=== PATIENT | female | born 1935 | race Caucasian/White ===

== ENCOUNTER 2018-08-15 16:53 | Observation (INO) | payer BC, MEDICARE ==
[~2018-08-15] VITALS: Ht 160 cm; Wt 72.0 kg
[~2018-08-15 16:53] MED LIST: ALPR0.25; ATOR10TA65 PO; CETI10CA; ESCI20TA; HYDR-1666; IRBE1TAB29 PO; PANT40TA3 PO
--- NOTE | 2018-08-15 17:24 | STROKE ---
Date/Time of Note Date/Time of Note DATE: 08/15/18 TIME: 17:23 Patient Information General Arrival Date Age 83 Gender female Weight 72 kg Vital Signs Vital Signs Vital Signs Date Temp Pulse Resp B/P (MAP) Pulse Ox O2 O2 Flow FiO2 Time Delivery Rate 08/15/18 97.8 105 18 135/76 94 Room Air 17:21 (95) Patient History Current Medications Allergies: Coded Allergies: No Known Allergy (Unverified , 05/05/13) History & Physical History of Present Illness 83 F PMH HTN LKW 1615 PST with transient aphasia NIH Stroke Scale NIH Stroke Scale [id number] Total Score: [id number] Date/Time Recorded DATE: 08/15/18 TIME: 17:23 Submitted By Mauri Steve t-PA Imaging Review Date/Time Imaging Reviewed DATE: 08/15/18 TIME: 17:23 t-PA Administration Recommendation: No Weight 72 kg Recommedation submitted by Mauri Steve Reason t-PA not Recommended NIHSS 0 Recommendations Recommendation 83 F with TIA consisting of transient aphasia. Back to baseline now. - Admission for initial TIA studies: MRI Brain, MRA Head/Neck, TTE with bubble, blood cultures, telemetry, EKG, LDL, A1c, SP, PT, OT. Further testing per these initial results/evaluations. - Perform bedside swallow testing in ED and load with ASA 325 mg PO and Plavix 600 mg PO if passes and not already on these agents at home. Would continue ASA at 81 mg PO QD and Plavix at 75 mg PO QD starting tomorrow. Duration of dual-an tiplatelet therapy per local Neurology team - Frequent neuro checks per protocol - Strict normonatremia, normothermia, normoglycemia - Permissive SBP to 180 for first 24 hours during stroke work-up - Please consult local Neurologist to guide further recs MAURI STEVE MD August 15, 2018 17:24
[2018-08-15] MEDS ORDERED: ASPIRIN 325 MG TAB PO ONE (17:30)
[2018-08-15] MEDS ORDERED: CLOPIDOGREL 75 MG TAB PO ONE (17:30)
[2018-08-15] MEDS ORDERED: ALPR0.5T PO (17:36)
[2018-08-15] MEDS ORDERED: ESCI5TAB10 PO (17:38)
[2018-08-15] MEDS ORDERED: PANT40TA4 PO (17:43)
[2018-08-15] MEDS ORDERED: ATOR40TA68 PO (17:43)
[2018-08-15] MEDS ORDERED: HYDR-3980 PO (17:43)
[2018-08-15] MEDS ORDERED: IRBE1TAB33 PO (17:44)
[2018-08-15] MEDS ORDERED: POTASSIUM CHLORIDE (SR) 20 MEQ TAB PO STA (17:50)
[2018-08-15] MEDS ORDERED: DIPHENOXYLATE/ATROPINE TAB PO PRN (18:00)
[2018-08-15] MEDS ORDERED: hydrALAzine 20 MG INJ IV PRN (18:00)
[2018-08-15] MEDS ORDERED: ACETAMINOPHEN 325 MG TAB PO PRN (18:00)
[2018-08-15] MEDS ORDERED: PANTOPRAZOLE 40 MG INJ IV ONE (19:30)
[2018-08-15] MEDS: BUSPIRONE 5 MG TAB PO SCH (21:00)
[2018-08-15] MEDS ORDERED: ATORVASTATIN 80 MG TAB PO SCH (21:00)
[2018-08-15] MEDS: ALPRAZOLAM 1 MG TAB PO PRN (21:08)
[2018-08-15] MEDS ORDERED: ALPRAZOLAM 0.25 MG TAB PO ONE (21:30)
[2018-08-15 23:23] VITALS: PULSE 74
[2018-08-15] MEDS: HYDROCODONE/APAP (10/325) TAB PO PRN (23:38)
[2018-08-16] VITALS (9 sets, daily range): BP systolic 110–136; BP diastolic 60–64; PULSE 77–95; RESP 18–20; Ht 160 cm; Wt 72.0 kg
[2018-08-16] MEDS ORDERED: PANTOPRAZOLE (EC) 40 MG TAB PO SCH (09:00)
[2018-08-16] MEDS ORDERED: ESCITALOPRAM 10 MG TAB PO SCH (09:00)
[2018-08-16] MEDS ORDERED: ASPIRIN 81 MG TAB PO SCH (09:00)
[2018-08-16] MEDS ORDERED: CLOPIDOGREL 75 MG TAB PO SCH (09:00)
[2018-08-16] MEDS ORDERED: LOSARTAN 50 MG TAB PO SCH (09:00)
[2018-08-16] MEDS: BUSPIRONE 5 MG TAB PO SCH ×2 (09:00→09:05)
[2018-08-16] MEDS: HYDROCODONE/APAP (10/325) TAB PO PRN ×2 (10:51→16:23)
[2018-08-16] MEDS: ALPRAZOLAM 1 MG TAB PO PRN (16:23)
--- NOTE | 2018-08-16 17:50 | RADRPT ---
Echocardiogram Report Patient Name: Angela WELSH ID: [id number] : 1935 (83y 3m)Study Date: 08/16/2018 12:15:55 PM Gender: FAccession #: [id number] Tech: Christopher Olivares [facility] Location: 630 Ref.Physician: MARILYN PUENTES Height(Cm): BSA: Weight(Kg): Quality: AdequateOrder Physician: MARILYN PUENTES Account #: Procedures: Echocardiographic Report: Transthoracic echocardiogram with complete 2D, M-Mode, and doppler examination. Indications: Transient Ischemic Attack. Measurements: 2D/M Mode Doppler Measurement Value Normal Range Measurement Value Normal Range LVIDd 2D 2.2 [ 3.8 - 5.2 ] cm AV Peak Alli 1.2 [ 100.0 - 170.0 ] cm/sec LVIDs 2D 1.5 [ 2.2 - 3.5 ] cm AV Peak PG 6.0 [ 2.0 - 9.0 ] mmHg LVPWd 2D 1.0 [ 0.6 - 0.9 ] cm LVOT Peak Alli 1.0 [ 70.0 - 110.0 ] cm/sec IVSd 2D 1.4 [ 0.6 - 0.9 ] cm LVOT Peak PG 4.0 [ 2.0 - 6.0 ] mmHg IVS/LVPW 2D 1.4 ratio MV E Peak Alli 0.8 [ 60.0 - 130.0 ] cm/sec AoR Diam 2D 2.1 [ 2.3 - 3.1 ] cm MV A Peak Alli 1.3 [ 100.0 - 120.0 ] cm/sec LA/Ao 2D 1 ratio MV E/A 0.6 [ 0.8 - 1.5 ] ratio LA Dimen 2D 2.9 [ 2.7 - 3.8 ] cm MV Decel Time 169 [ 104 - 258 ] msec Lat E` Alli 0.1 [ 10.0 - 15.0 ] cm/sec MV E/A 0.6 [ 0.8 - 1.5 ] ratio TR Peak Alli 2.2 [ 100.0 - 280.0 ] cm/sec TR Peak PG 19.0 mmHg RVSP 22.0 [ 10.0 - 36.0 ] mmHg RA Pressure 3.0 mmHg Findings: Left Ventricle: Normal left ventricular systolic function. Normal left ventricular cavity size. Moderate concentric left ventricular hypertrophy. Ejection fraction is visually estimated at 65 %. Tissue Doppler/Mitral Doppler indices are consistent with impaired relaxation (Stage I diastolic dysfunction). Right Ventricle: Normal right ventricular size. Normal right ventricular systolic function. Left Atrium: The left atrium is normal in size. Right Atrium: The right atrium is normal in size. Atrial Septum: Bubble study was performed with and with out valsalva indicating no evidence of intra atrial shunt. Mitral Valve: Normal appearance and function of the mitral valve with trace physiologic regurgitation. Aortic Valve: No significant aortic stenosis or insufficiency. Aortic cusps appear mildly calcified. Tricuspid Valve: Normal appearance of the tricuspid valve. Estimated peak PA systolic pressure 22 mmHg. There is trace tricuspid regurgitation. Pulmonic Valve: Normal pulmonic valve appearance. Pericardium: Normal pericardium with no significant pericardial effusion. Aorta: Normal aortic root. IVC: Normal size and normal respiratory collapse consistent with normal right atrial pressure. Conclusions: Normal left ventricular systolic function. Normal left ventricular cavity size. Moderate concentric left ventricular hypertrophy. Ejection fraction is visually estimated at 65 %. Tissue Doppler/Mitral Doppler indices are consistent with impaired relaxation (Stage I diastolic dysfunction). Normal right ventricular size. Normal right ventricular systolic function. The left atrium is normal in size. The right atrium is normal in size. No significant valvular stenosis or regurgitation seen. Normal pericardium with no significant pericardial effusion. Bubble study was performed with and with out valsalva indicating no evidence of intra atrial shunt. Electronically Signed By: Edison Starks 2018-08-16 17:49:33 PDT
[2018-08-16] MEDS ORDERED: ASPI-831 PO (18:51)
[2018-08-16] MEDS ORDERED: CLOP75TA28 PO (18:51)
--- NOTE | 2018-08-16 18:53 | HP ---
Date/Time of Note Date/Time of Note DATE: 08/16/18 TIME: 18:25 Assessment/Plan VTE Prophylaxis Risk score (from Ns)>0 risk: 3 SCD applied (from Nsg): No Lines/Catheters IV Catheter Type (from Nrs): Saline Lock Urinary Cath still in place: No Assessment/Plan Result Diagram: 08/16/18 0548 08/16/18 0548 Results 24hrs Laboratory Tests Test 08/15/18 20:32 08/16/18 05:48 Urine Color STRAW Urine Clarity CLEAR Urine pH 5.0 Urine Specific [place] 1.005 Urine Ketones NEGATIVE Urine Nitrite NEGATIVE Urine Bilirubin NEGATIVE Urine Urobilinogen NEGATIVE Urine Leukocyte Esterase 1+ H Urine Microscopic RBC 2 Urine Microscopic WBC 10 H Urine Hemoglobin 1+ H Urine Glucose NEGATIVE Urine Total Protein NEGATIVE Urine Opiates Screen Positive Urine Barbiturates Negative Urine Amphetamines Screen Negative Urine Benzodiazepines Screen Positive Urine Cocaine Screen Negative Urine Cannabinoids Negative White Blood Count 5.6 Red Blood Count 3.91 L Hemoglobin 11.8 L Hematocrit 37.5 Mean Corpuscular Volume 95.9 Mean Corpuscular Hemoglobin 30.2 Mean Corpuscular Hemoglobin Concent 31.5 L Red Cell Distribution Width 13.2 Platelet Count 127 #L Mean Platelet Volume 9.4 Immature Granulocytes % 0.200 Neutrophils % 51.9 Lymphocytes % 34.1 Monocytes % 12.3 H Eosinophils % 1.1 Basophils % 0.4 Nucleated Red Blood Cells % 0.0 Immature Granulocytes # 0.010 Neutrophils # 2.9 Lymphocytes # 1.9 Monocytes # 0.7 Eosinophils # 0.1 Basophils # 0.0 Nucleated Red Blood Cells # 0.0 Sodium Level 143 Potassium Level 3.5 Chloride Level 107 Carbon Dioxide Level 27 Anion Gap 9 Blood Urea Nitrogen 14 Creatinine 0.94 Est Glomerular Filtrat Rate mL/min Glucose Level 107 Calcium Level 9.4 Total Bilirubin 0.5 Direct Bilirubin 0.00 Indirect Bilirubin 0.5 Aspartate Amino Transf (AST/SGOT) 23 Alanine Aminotransferase (ALT/SGPT) 13 Alkaline Phosphatase 70 Total Protein 7.0 Albumin 3.7 Globulin 3.30 H Albumin/Globulin Ratio 1.12 Thyroid Stimulating Hormone (TSH) 2.640 HPI/ROS Admit Date/Time Admit Date/Time August 15, 2018 at 17:53 PMH/Family/Social Past Medical History Medications Current Medications Atorvastatin Calcium (Lipitor) 80 mg HS PO Last administered on 08/15/18 23:37; Admin Dose 80 MG; Start 08/15/18 at 21:00 Aspirin (Aspirin) 81 mg AM PO Last administered on 08/16/18 09:05; Admin Dose 81 MG; Start 08/16/18 at 09:00 Clopidogrel Bisulfate (plaVIX) 75 mg AM PO Last administered on 08/16/18 09:05; Admin Dose 75 MG; Start 08/16/18 at 09:00 Losartan Potassium (Cozaar) 50 mg AM PO Last administered on 08/16/18 09:06; Admin Dose 50 MG; Start 08/16/18 at 09:00 Escitalopram Oxalate (Lexapro) 5 mg AM PO Last administered on 08/16/18 09:05; Admin Dose 5 MG; Start 08/16/18 at 09:00 Acetaminophen/ Hydrocodone Bitart ([place] (10/325)) 1 tab QID PRN PO PAIN LEVEL 6-10 Last administered on 08/16/18 16:23; Admin Dose 1 TAB; Start 08/15/18 at 18:00 Alprazolam (Xanax) 1 mg TID PRN PO ANXIETY Last administered on 08/16/18 16:23; Admin Dose 1 MG; Start 08/15/18 at 18:00 Pantoprazole (Protonix Tab) 40 mg AM PO Last administered on 08/16/18 09:05; Admin Dose 40 MG; Start 08/16/18 at 09:00 Buspirone HCl (Buspar) 5 mg BID PO ; Start 08/15/18 at 21:00 Diphenoxylate HCl/ Atropine (Lomotil) 1 tab Q6 PRN PO diarrhea; Start 08/15/18 at 18:00 Acetaminophen (Tylenol Tab) 650 mg Q6 PRN PO MILD PAIN(1-3)OR ELEVATED TEMP; Start 08/15/18 at 18:00 Hydralazine HCl (Apresoline) 5 mg Q4 PRN IV SBP>180 OR DBP>100; Start 08/15/18 at 18:00 Coded Allergies: No Known Allergy (Unverified , 08/15/18) Social History Smoking Status: Never smoker Exam/Review of Systems Vital Signs Vitals Vital Signs Date Temp Pulse Resp B/P (MAP) Pulse Ox O2 O2 Flow FiO2 Time Delivery Rate 08/16/18 77 17:14 08/16/18 Room Air 16:25 08/16/18 98.3 20 134/63 97 15:49 (86) Intake and Output 08/15/18 08/15/18 08/16/18 1515:00 23:00 07:00 IntakeIntake Total 400 ml BalanceBalance 400 ml QASIM BRUCE MD August 16, 2018 18:53
--- NOTE | 2018-08-16 18:56 | DS ---
Date/Time of Note Date/Time of Note DATE: 08/16/18 TIME: 18:53 Discharge Summary Admission/Discharge Info Admit Date/Time August 15, 2018 at 17:53 Discharge Date/Time August 16, 2018 at 1850 Discharge Diagnosis Transient ischemic attack. Aphasia. Weakness. Atherosclerosis of aorta. Hypertension. Fibromyalgia. Anxiety and depression. Patient Condition: Fair Consults Neurology Procedures Head CT scan Head MRI Brain MRA Echocardiogram Hx of Present Illness Patient was spending the day with her family when she suddenly developed slurred speech which progressed to complete aphasia and unable to talk or find words with a few minutes. Patient's family brought her to ER where her symptoms gradually resolved over 30-45 minutes and she is admitted for work up of transient ischemic attack. Hospital Course Patient was admitted with episode of aphasia lasting about 30-45 minutes. Work up shows no acute CVA or source. Thus the transient ischemic attacks was presumed to be due to occult embolism possibly from aortic atherosclerosis seen on Chest Xrays. Patient discharged on Plavix and baby aspirin. She is to continue all her other medicine for fibromyalgia , anxiety, blood pressure and cholesterol. She did have weakness and gait instability as well as pain prior to admission but is exacerbated by current hospitalization and will need outpatient physical therapy and nursing care as she lives alone. Home Meds Active Scripts Aspirin (Aspirin) 81 Mg Chew, 81 MG PO AM for 30 Days, #30 TAB Prov:QASIM FLORES MD 08/16/18 Clopidogrel Bisulfate (Clopidogrel) 75 Mg Tablet, 75 MG PO AM for 30 Days, #30 TAB Prov:QASIM FLORES MD 08/16/18 Reported Medications Irbesartan-Hydrochlorothiazide (Irbesartan-Hydrochlorothiazide) 150-12.5 Mg Tab, 1 TAB PO DAILY, TAB 08/15/18 Atorvastatin* (Atorvastatin*) 40 Mg Tablet, 40 MG PO QHS, #30 TAB 08/15/18 Pantoprazole* (Pantoprazole*) 40 Mg Tablet.dr, 40 MG PO AC BREAKFAST, TAB 08/15/18 Hydrocodone/Acetaminophen ([place] 10-325 Tablet) 1 Each Tablet, 1 EACH PO QID, TAB 08/15/18 Escitalopram Oxalate* (Escitalopram Oxalate*) 5 Mg Tablet, 5 MG PO BID, #30 TAB 08/15/18 Alprazolam* (Xanax*) 0.5 Mg Tab, 0.5 MG PO TID PRN for ANXIETY, TAB 08/15/18 Discontinued Reported Medications Cetirizine Hcl* (Zyrtec*) 10 Mg Capsule, DAILY 05/05/13 Pantoprazole* (Protonix*) 40 Mg Tablet.dr, PO DAILY 05/05/13 Hydrocodone Bit/Acetaminophen ([place] 5/500 Tablet) 1 Tab Tablet, PRN 05/05/13 Alprazolam* (Xanax*) 0.25 Mg Tablet, PRN 05/05/13 Escitalopram Oxalate* (Lexapro*) 20 Mg Tablet, DAILY 05/05/13 Atorvastatin Calcium (Atorvastatin Calcium) 10 Mg Tab, 20 MG PO DAILY 05/05/13 Irbesartan/Hydrochlorothiazide (Avalide) 1 Tab Tab, PO DAILY 05/05/13 Follow-up Plan Follow up with Dr. Flores in 1-2 weeks Home health nursing and physical therapy. Primary Care Provider Qasim Flores MD Time spent on discharge: > 30 minutes Pending Labs Laboratory Tests Test 08/15/18 20:32 08/16/18 05:48 Urine Color STRAW (YELLOW) Urine Clarity CLEAR (CLEAR) Urine pH 5.0 (5.0-9.0) Urine Specific [place] 1.005 (1.003-1.030) Urine Ketones NEGATIVE mg/dL (NEGATIVE) Urine Nitrite NEGATIVE mg/dL (NEGATIVE) Urine Bilirubin NEGATIVE mg/dL (NEGATIVE) Urine Urobilinogen NEGATIVE mg/dL (NEGATIVE) Urine Leukocyte Esterase 1+ Elisha/ul (NEGATIVE) Urine Microscopic RBC 2 /HPF (0-5) Urine Microscopic WBC 10 /HPF (0-5) Urine Hemoglobin 1+ mg/dL (NEGATIVE) Urine Glucose NEGATIVE mg/dL (NEGATIVE) Urine Total Protein NEGATIVE mg/dl (NEGATIVE) Urine Opiates Screen Positive (NEGATIVE) Urine Barbiturates Negative (NEGATIVE) Urine Amphetamines Screen Negative (NEGATIVE) Urine Benzodiazepines Positive (NEGATIVE) Screen Urine Cocaine Screen Negative (NEGATIVE) Urine Cannabinoids Negative (NEGATIVE) White Blood Count 5.6 10^3/ul (4.8-10.8) Red Blood Count 3.91 10^6/ul (4.20-5.40) Hemoglobin 11.8 g/dl (12.0-16.0) Hematocrit 37.5 % (37.0-47.0) Mean Corpuscular Volume 95.9 fl (82.0-101.0) Mean Corpuscular 30.2 pg (29.0-33.0) Hemoglobin Mean Corpuscular 31.5 g/dl (32.0-37.0) Hemoglobin Concent Red Cell Distribution 13.2 % (11.5-14.5) Width Platelet Count 127 10^3/UL (140-415) Mean Platelet Volume 9.4 fl (7.4-10.4) Immature Granulocytes % 0.200 % (0.001-0.429) Neutrophils % 51.9 % (39.0-77.0) Lymphocytes % 34.1 % (15.0-51.0) Monocytes % 12.3 % (0.0-11.0) Eosinophils % 1.1 % (0.0-7.0) Basophils % 0.4 % (0.0-2.0) Nucleated Red Blood Cells 0.0 /100WBC (0.0-0.0) % Immature Granulocytes # 0.010 10^3/ul (0.0-0.031) Neutrophils # 2.9 10^3/ul (1.6-7.5) Lymphocytes # 1.9 10^3/ul (0.8-2.9) Monocytes # 0.7 10^3/ul (0.3-0.9) Eosinophils # 0.1 10^3/ul (0.0-0.5) Basophils # 0.0 10^3/ul (0.0-0.1) Nucleated Red Blood Cells 0.0 10^3/ul (0.0-0.0) # Sodium Level 143 mmol/L (135-144) Potassium Level 3.5 mmol/L (3.5-5.1) Chloride Level 107 mmol/L (97-110) Carbon Dioxide Level 27 mmol/L (21-31) Anion Gap 9 (5-13) Blood Urea Nitrogen 14 mg/dl (7-20) Creatinine 0.94 mg/dl (0.44-1.00) Est Glomerular Filtrat mL/min (>60) Rate mL/min Glucose Level 107 mg/dl (70-220) Calcium Level 9.4 mg/dl (8.4-10.2) Total Bilirubin 0.5 mg/dl (0.2-1.3) Direct Bilirubin 0.00 mg/dl (0.00-0.20) Indirect Bilirubin 0.5 mg/dl (0-1.1) Aspartate Amino 23 IU/L (15-46) Transf (AST/SGOT) Alanine 13 IU/L (13-69) Aminotransferase (ALT/SGPT ) Alkaline Phosphatase 70 IU/L (42-121) Total Protein 7.0 g/dl (6.1-8.1) Albumin 3.7 g/dl (3.3-4.9) Globulin 3.30 g/dl (1.3-3.2) Albumin/Globulin Ratio 1.12 Thyroid Stimulating 2.640 MIU/L (0.465-4.680) Hormone (TSH) QASIM FLORES MD August 16, 2018 18:56
--- NOTE | 2018-08-16 20:09 | ERD ---
ER Documentation Chief Complaint Chief Complaint c/o can't find words to express ideas onset 20min ago HPI The patient is a 83-year-old female, presenting to the ER because of sudden onset of inability to express herself 20 minutes prior to arrival, denies any headache, dizziness, blurred vision, neck pain, chest pain, dyspnea, abdominal pain, vomiting, weakness. She does not smoke nor drink Past medical history: Fibromyalgia, hypertension Past surgical history: Diverticulitis surgery ROS All systems reviewed and are negative except as per history of present illness. Medications Home Meds Active Scripts Aspirin (Aspirin) 81 Mg Chew, 81 MG PO AM for 30 Days, #30 TAB Prov:QASIM BRUCE MD 08/16/18 Clopidogrel Bisulfate (Clopidogrel) 75 Mg Tablet, 75 MG PO AM for 30 Days, #30 TAB Prov:QASIM BRUCE MD 08/16/18 Reported Medications Irbesartan-Hydrochlorothiazide (Irbesartan-Hydrochlorothiazide) 150-12.5 Mg Tab, 1 TAB PO DAILY, TAB 08/15/18 Atorvastatin* (Atorvastatin*) 40 Mg Tablet, 40 MG PO QHS, #30 TAB 08/15/18 Pantoprazole* (Pantoprazole*) 40 Mg Tablet.dr, 40 MG PO AC BREAKFAST, TAB 08/15/18 Hydrocodone/Acetaminophen ([place] 10-325 Tablet) 1 Each Tablet, 1 EACH PO QID, TAB 08/15/18 Escitalopram Oxalate* (Escitalopram Oxalate*) 5 Mg Tablet, 5 MG PO BID, #30 TAB 08/15/18 Alprazolam* (Xanax*) 0.5 Mg Tab, 0.5 MG PO TID PRN for ANXIETY, TAB 08/15/18 Discontinued Reported Medications Cetirizine Hcl* (Zyrtec*) 10 Mg Capsule, DAILY 05/05/13 Pantoprazole* (Protonix*) 40 Mg Tablet.dr, PO DAILY 05/05/13 Hydrocodone Bit/Acetaminophen (Vicodin 5/500 Tablet) 1 Tab Tablet, PRN 05/05/13 Alprazolam* (Xanax*) 0.25 Mg Tablet, PRN 05/05/13 Escitalopram Oxalate* (Lexapro*) 20 Mg Tablet, DAILY 05/05/13 Atorvastatin Calcium (Atorvastatin Calcium) 10 Mg Tab, 20 MG PO DAILY 05/05/13 Irbesartan/Hydrochlorothiazide (Avalide) 1 Tab Tab, PO DAILY 05/05/13 Allergies Allergies: Coded Allergies: No Known Allergy (Unverified , 08/15/18) PMhx/Soc History of Surgery: No Anesthesia Reaction: No Hx Neurological Disorder: No Hx Respiratory Disorders: No Hx Cardiac Disorders: Yes Hx Psychiatric Problems: No Hx Miscellaneous Medical Probl: No Hx Alcohol Use: No Hx Substance Use: No Hx Tobacco Use: No Smoking Status: Never smoker Physical Exam Vitals Vital Signs Date Temp Pulse Resp B/P (MAP) Pulse Ox O2 O2 Flow FiO2 Time Delivery Rate 08/15/18 97.8 105 15 153/68 94 Room Air 17:53 (96) 08/15/18 97.8 105 18 135/76 94 Room Air 17:21 (95) 08/15/18 97.8 102 18 135/76 94 17:10 (95) Physical Exam Const: No acute distress. Head: Atraumatic. Eyes: Normal Conjunctiva. ENT: Normal External Ears, Nose and Mouth. Neck: Full range of motion. No meningismus. Resp: Clear to auscultation bilaterally. Cardio: Regular rate and rhythm. Abd: Soft, non distended, normal bowel sounds, non tender. Skin: No petechiae or rashes. Back: No midline or flank tenderness. Ext: No cyanosis, or edema. Neur: Awake and alert. No focal deficit. Slurred speech confirmed by her daughter Psych: Normal Mood and Affect. Result Diagram: 08/16/18 0548 08/16/18 0548 Results 24 hrs Laboratory Tests Test 08/15/18 17:00 08/15/18 17:29 White Blood Count 7.0 10^3/ul Red Blood Count 4.30 10^6/ul Hemoglobin 13.2 g/dl Hematocrit 41.0 % Mean Corpuscular Volume 95.3 fl Mean Corpuscular Hemoglobin 30.7 pg Mean Corpuscular Hemoglobin Concent 32.2 g/dl Red Cell Distribution Width 13.2 % Platelet Count 164 10^3/UL Mean Platelet Volume 9.3 fl Immature Granulocytes % 0.300 % Neutrophils % 57.4 % Lymphocytes % 30.8 % Monocytes % 10.1 % Eosinophils % 0.7 % Basophils % 0.7 % Nucleated Red Blood Cells % 0.0 /100WBC Immature Granulocytes # 0.020 10^3/ul Neutrophils # 4.0 10^3/ul Lymphocytes # 2.2 10^3/ul Monocytes # 0.7 10^3/ul Eosinophils # 0.1 10^3/ul Basophils # 0.1 10^3/ul Nucleated Red Blood Cells # 0.0 10^3/ul Prothrombin Time 13.0 Sec Prothrombin Time Ratio 1.0 INR International Normalized Ratio 0.97 Activated Partial Thromboplast Time 33.2 Sec Sodium Level 143 mmol/L Potassium Level 3.3 mmol/L Chloride Level 105 mmol/L Carbon Dioxide Level 26 mmol/L Anion Gap 12 Blood Urea Nitrogen 14 mg/dl Creatinine 1.10 mg/dl Est Glomerular Filtrat Rate mL/min mL/min Glucose Level 132 mg/dl Hemoglobin A1c 5.3 % Calcium Level 9.7 mg/dl Creatine Kinase 43 IU/L Creatine Kinase Index 1.3 Creatinine Kinase MB (Mass) 0.58 ng/ml Troponin I < 0.012 ng/ml Triglycerides Level 253 mg/dl Cholesterol Level 192 mg/dl LDL Cholesterol, Calculated 94 mg/dl HDL Cholesterol 47 mg/dl Cholesterol/HDL Ratio 4.0 RATIO Ethyl Alcohol Level < 10.0 mg/dl Bedside Glucose 116 mg/dL Current Medications Medications Dose Sig/Cornelio Start Time Status Last (Trade) Ordered Route PRN Stop Time Admin Dose Reason Admin Aspirin 325 mg ONCE ONCE 08/15/18 DC 08/15/18 (Aspirin) PO 17:30 17:47 08/15/18 17:31 Clopidogrel 600 mg ONCE ONCE 08/15/18 DC 08/15/18 Bisulfate PO 17:30 17:50 (plaVIX) 08/15/18 17:31 Potassium 20 meq ONCE STAT 08/15/18 DC 08/15/18 Chloride PO 17:50 18:16 (Klor-Con 20) 08/15/18 18:03 Procedures/[place] [address] Radiology Main Line: [phone] DIAGNOSTIC IMAGING REPORT Patient: NAVI WELSH : 1935 Age: 83 Sex: F MR #: [id number] DOS: 08/15/18 1652 Ordering MD: EDISON MARES MD Location: E/R Room/Bed: PROCEDURE: CT Head without contrast. CLINICAL INDICATION: Code stroke. Neurologic deficit. TECHNIQUE: The study was performed utilizing a GE 64-slice multidetector CT scanner. Direct spiral axial CT images of the brain were obtained from the vertex to the skull base without contrast. Coronal and sagittal reformatted images are provided. The CTDI vol is 37.01 mGy and the DLP is 634.23 mGy-cm. The images were reviewed on a PACS workstation. DICOM images are available. One or more of the following dose reduction techniques were used: Automated exposure control. Adjustment of the mA and/or kV according to patient size. Use of iterative reconstruction technique. COMPARISON: No prior studies are available for comparison. FINDINGS: Moderate diffuse atrophy is seen with a compensatory ventricular enlargement. Mild white matter disease in the periventricular and deep white matter is seen. The cline-white matter differentiation is maintained. No intra or extra-axial fluid collection or mass effect or shift in the midline structures is seen. The visualized paranasal sinuses, mastoid air cells, orbits, and calvarium are unremarkable. Vascular calcifications are seen. IMPRESSION: 1. No acute intracranial pathology. 2. Moderate diffuse volume loss and mild chronic microvascular ischemic changes. Results were discussed with Edison Mares at 08/15/2018 5:06:49 PM RPTAT: HPNM Physician Frederick Date Time Electronically viewed and signed by Physician Frederick on 08/15/2018 17:06 / CC: EDISON MARES MD [id number] [place] [id number] Radiology Main Line: [phone] DIAGNOSTIC IMAGING REPORT Patient: NAVI WELSH : 1935 Age: 83 Sex: F MR #: [id number] DOS: 08/15/18 1657 Ordering MD: EDISON MARES MD Location: E/R Room/Bed: PROCEDURE: XR Chest 1 View. CLINICAL INDICATION: Shortness of breath. Stroke. TECHNIQUE: Single view of the chest was obtained. COMPARISON: CR CHEST 05/05/2013 FINDINGS: Support lines and tubes: None. Mediastinum: Heart size within normal limits. Calcified atherosclerosis in the aorta. Rounded density and lucency overlying the heart. Lungs: Diffuse interstitial prominence in both lungs. Hyperexpanded lungs. Sca ttered atelectasis in both lungs. No pneumothorax. Osseous structures: Intact. Osteopenia. Degenerative changes in the shoulders. Other: None. IMPRESSION: Calcified atherosclerosis in the aorta. Scattered atelectasis in both lungs. Hyperexpanded lungs with diffuse mild interstitial prominence in both lungs. Interstitial prominence could be chronic. Findings could reflect COPD. Rounded density and lucency overlying the heart. Finding could reflect a large hiatal hernia. If further characterization is needed a lateral image or CT could be helpful. RPTAT: AA .Federico Malhotra MD, MD Date Time Electronically viewed and signed by .Federico Malhotra MD, MD on 08/15/2018 17:29 .P/ CC: EDISON MARES MD [id number] EKG: Read by emergency physician Rate/Rhythm: Sinus tachycardia 102 beats/min QRS, ST, T-waves: No ST elevation, no T inversion, nonspecific ST abnormality Impression: abnormal EKG UA Pending Consultation: I discussed the patient with the stroke neurologist Dr. Driscoll at 5:11 PM, who evaluated the patient and did not recommend TPA, recommended aspirin 325 mg p.o. and Plavix 300 mg p.o. MEDICAL MAKING DECISION: The patient is a 83-year-old female, presenting with acute TIA, acute hypokalemia, was treated with aspirin and Plavix acute TIA, potassium chloride 20 mg p.o. for acute hypokalemia The differential diagnoses considered include but are not limited to TIA, impending CVA Departure Diagnosis: Primary Impression: TIA (transient ischemic attack) Additional Impressions: Hypokalemia Thrombocytopenia Condition: Stable Patient Instructions: Taking Plavix, T.I.A.: Transient Ischemic Attack, Aspirin, ASA; Carisoprodol; Codeine tablets Comments I discussed the findings with the patient. I discussed the patient with Dr Ortega at 5:50p , who was made aware of the lab, the treatment, the patient condition. The patient is admitted to Tel Disclaimer: Inadvertent spelling and grammatical errors are likely due to EHR/dictation software use and do not reflect on the overall quality of patient care. Also, please note that the electronic time recorded on this note does not necessarily reflect the actual time of the patient encounter. EDISON MARES MD August 16, 2018 20:09
== END 2018-08-16 19:50 | disposition home or self-care (01) ==
LOC: E/R 16:53 → INTOOBSV 17:53 → 6WM 17:53 → EDBEDREQ 19:44
PROVIDERS: ADMIT Internal Medicine; ATTEND Internal Medicine
DX: G45.9 Transient cerebral ischemic attack, unspecified (principal); R47.01 Aphasia; R53.1 Weakness; I70.0 Atherosclerosis of aorta; I10 Essential (primary) hypertension; M79.7 Fibromyalgia; F41.9 Anxiety disorder, unspecified; F32.9 Major depressive disorder, single episode, unspecified; Z79.82 Long term (current) use of aspirin
CPT/HCPCS: 70450; 70544; 70549; 70551; 71045; 80048; 80053; 80061; 80307; 81001; 82550; 82553; 82962; 83036; 84443; 84484; 85025; 85610; 85730; 92610; 93005; 93306; C9113; G0378; 36415; 99217